=== PATIENT | female | born 1995 | race Caucasian/White ===

== ENCOUNTER → 2023-09-21 13:23 | Outpatient (REF) | payer BC, SELFPAY | LOC: PNTC 13:23 | PROVIDERS: ATTENDING PHYSICIAN Obstetrics & Gynecology | DX: O34.219 Maternal care for unspecified type scar from previous cesarean delivery (principal); O35 Maternal care for known or suspected fetal abnormality and damage; O35.5XX0 Maternal care for (suspected) damage to fetus by drugs, not applicable or unspecified; O26.839 Pregnancy related renal disease, unspecified trimester; O43.219 Placenta accreta, unspecified trimester | CPT/HCPCS: 76811; 93976 ==

== ENCOUNTER → 2023-10-19 11:20 | Outpatient (REF) | payer BC, SELFPAY | LOC: PNTC 11:20 | PROVIDERS: ATTENDING PHYSICIAN Obstetrics & Gynecology | DX: O35.5XX0 Maternal care for (suspected) damage to fetus by drugs, not applicable or unspecified (principal); O35 Maternal care for known or suspected fetal abnormality and damage; O43.219 Placenta accreta, unspecified trimester | CPT/HCPCS: 76816; 93976 ==

== ENCOUNTER → 2023-11-15 09:14 | Outpatient (REF) | payer BC, SELFPAY | LOC: REG 09:14 | PROVIDERS: ATTENDING PHYSICIAN Obstetrics & Gynecology; FAMILY PHYSICIAN Nurse Practitioner Family | DX: Z34.83 Encounter for supervision of other normal pregnancy, third trimester (principal) | CPT/HCPCS: 36415; 86850; 86900; 86901; J2790 ==

== ENCOUNTER → 2023-11-16 10:55 | Outpatient (REF) | payer BC, SELFPAY | LOC: PNTC 10:55 | PROVIDERS: ATTENDING PHYSICIAN Obstetrics & Gynecology | DX: O26.839 Pregnancy related renal disease, unspecified trimester (principal); O43.219 Placenta accreta, unspecified trimester | CPT/HCPCS: 76816; 93976 ==

== ENCOUNTER → 2023-12-14 11:04 | Outpatient (REF) | payer BC, SELFPAY | LOC: PNTC 11:04 | PROVIDERS: ATTENDING PHYSICIAN Obstetrics & Gynecology | DX: O34.219 Maternal care for unspecified type scar from previous cesarean delivery (principal); O43.219 Placenta accreta, unspecified trimester; Z96.0 Presence of urogenital implants | CPT/HCPCS: 76816; 93976 ==

== ENCOUNTER → 2024-01-11 10:22 | Outpatient (REF) | payer BC, SELFPAY | LOC: PNTC 10:22 | PROVIDERS: ATTENDING PHYSICIAN Obstetrics & Gynecology | DX: Z96.9 Presence of functional implant, unspecified (principal); O34.219 Maternal care for unspecified type scar from previous cesarean delivery | CPT/HCPCS: 76816 ==

== ENCOUNTER 2024-01-20 08:11 | Inpatient (IN) | payer BC, SELFPAY ==
[2024-01-20 08:18] VITALS: BP 123/80; BMI 26.0
[2024-01-20] MEDS: LR 1000 IV ×2 (08:45→10:25)
[2024-01-20 09:11] LABS: Hematocrit 32.4 % (37.0-47.0); Hemoglobin 11.6 g/dL (12.0-16.0); Mean Corp Hgb Conc. 35.8 g/dL (33.0-37.0); Mean Corpuscular Hgb 30.4 pg (27.0-31.0); Mean Corpuscular Volume 84.8 fL (81.0-99.0); Mean Platelet Volume 10.3 fL (7.4-10.4); Platelet Count 254 10^3/uL (130-400); Red Blood Cell Count 3.82 10^6/uL (4.20-5.40); Red Cell Dist. Width 13.5 % (11.5-14.5); White Blood Cell Count 11.8 10^3/uL (4.8-10.8)
[2024-01-20] MEDS: TYLENOL 1000 MG PO (10:21)
[2024-01-20] MEDS: ANCEF 10 IV (11:11)
[2024-01-20] MEDS: BICITRA 30 ML PO (11:11)
[2024-01-20] MEDS: TORADOL 15 MG IV ×2 (13:58→20:12)
[2024-01-20] MEDS: SENOKOT-S 1 TABLET PO (20:12)
[2024-01-21] MEDS: TORADOL 15 MG IV ×3 (01:44→14:02)
[2024-01-21 06:17] LABS: Hematocrit 28.7 % (37.0-47.0); Hemoglobin 10.1 g/dL (12.0-16.0); Mean Corp Hgb Conc. 35.2 g/dL (33.0-37.0); Mean Corpuscular Hgb 31.1 pg (27.0-31.0); Mean Corpuscular Volume 88.3 fL (81.0-99.0); Mean Platelet Volume 10.8 fL (7.4-10.4); Platelet Count 232 10^3/uL (130-400); Red Blood Cell Count 3.25 10^6/uL (4.20-5.40); Red Cell Dist. Width 13.4 % (11.5-14.5); White Blood Cell Count 19.4 10^3/uL (4.8-10.8)
--- NOTE | 2024-01-21 07:57 | W.PN.ANS.POP ---
Anesthesia Post Operative
- Anesthesia Post Op Note
Vital Signs Stable-See Nursing Note: Yes
Airway Patent: Yes
Adequate Pain Control: Yes
Change in Mental Status: No
Current Postoperative Nausea & Vomiting: No
Anesthesia Complications: No
General Anesthetic Recall: No
Unplanned Admission: No
Post Op Hydration Adequate: Yes
[2024-01-21] MEDS: MYLICON 80 MG PO ×2 (08:27→14:02)
[2024-01-21] MEDS: SENOKOT-S 1 TABLET PO (08:31)
[2024-01-21 12:58] LABS: Blood Urea Nitrogen 9 mg/dl (7-17); Estimated Creatinine Clearance 109 ml/min; eGFR > 60.00
[2024-01-21] MEDS: HYPERRHO S-D 1500 UNIT IM (15:06)
[2024-01-21] MEDS: TYLENOL 650 MG PO (20:47)
[2024-01-21] MEDS: MOTRIN 600 MG PO (20:48)
[2024-01-22] MEDS: MOTRIN 600 MG PO ×2 (03:25→11:03)
[2024-01-22] MEDS: TYLENOL 650 MG PO ×2 (03:25→11:03)
--- NOTE | 2024-01-22 09:45 | W.DS.TRANS ---
DC Summary - [employer]
-
Discharge Instructions:
Discharge Diagnosis/Procedures delivered by repeat csection
Diet Regular
Activity No strenuous activity
Driving Restrictions No driving for 2 weeks
Bathing Restrictions OK to Shower
Instructions:
Stand-Alone Forms: LDRP Delivery
Changes to Home Medications: No
Discharge Medications:
DC Medications w/original date entered in [facility] [employer]
amoxicillin 250 mg PO DAILY Infection 01/20/24
iron 320 mg PO DAILY Supplement 01/20/24
acetaminophen 325 mg tablet 650 mg (2 x 325 mg) PO Q4HPRN PRN mild pain #0 tabs 01/21/24
ibuprofen 600 mg tablet 600 mg PO Q6HPRN PRN cramps #0 tabs 01/21/24
Home Medication Changes
Pending Results: Yes
Additional Pending Results:
pathology from tubal sterilization
Total time spent discharging patient (in min): 25
[2024-01-25 11:49] LABS: Syphilis/T. pallidum Ab Reflex Negative (Negative)
== END 2024-01-22 11:37 | disposition home or self-care (01) | DRG 784 ==
LOC: LDRP 08:11
PROVIDERS: Obstetrics & Gynecology; ADMITTING PHYSICIAN Obstetrics & Gynecology
PROC: 10D00Z1 Extraction of Products of Conception, Low, Open Approach (ICD-10-PCS; 2024-01-20)
PROC: 0UT70ZZ Resection of Bilateral Fallopian Tubes, Open Approach (ICD-10-PCS; 2024-01-20)
DX: O34.211 Maternal care for low transverse scar from previous cesarean delivery (principal); N13.2 Hydronephrosis with renal and ureteral calculous obstruction; O99.892 Other specified diseases and conditions complicating childbirth; N85.8 Other specified noninflammatory disorders of uterus; O69.81X0 Labor and delivery complicated by cord around neck, without compression, not applicable or unspecified; Z3A.39 39 weeks gestation of pregnancy; Z37.0 Single live birth; Z30.2 Encounter for sterilization
CPT/HCPCS: 88302; 58605; 74177; 82565; 84520; 85027; 85461; 86780; 86850; 86870; 86900; 86901; J2790; Q9967